=== PATIENT | female | born 2000 | race African-American/Black ===

== ENCOUNTER 2022-10-28 00:18 | Emergency (ER) | payer SELFPAY ==
[~2022-10-28] VITALS: Ht 160 cm; Wt 90.9 kg
[2022-10-28] MEDS ORDERED: buprenorphine/naloxone 8MG-2MG SUBlingual film SL ONE (00:25)
[2022-10-28] MEDS ORDERED: normal saline 1000ml 1,000 ML IV ONE (00:30)
[2022-10-28 00:50] LABS: BASOPHILS % (AUTO) 0.4 % (0-1); EOSINOPHILS # (AUTO) 0.2 X10'3 (0-0.9); EOSINOPHILS % (AUTO) 2.2 % (0-6); HEMATOCRIT 41.5 % (35.0-45.0); HEMOGLOBIN 14.2 g/dl (12.0-16.0); LYMPHOCYTES # (AUTO) 2.3 X10'3 (1.1-4.8); LYMPHOCYTES % (AUTO) 27.8 % (21-51); MEAN CORPUSCULAR HEMOGLOBIN 31.2 PG (27.0-31.0); MEAN CORPUSCULAR HGB CONC 34.1 g/dL (33.0-36.5); MEAN CORPUSCULAR VOLUME 91.6 FL (78-98); MEAN PLATELET VOLUME 9.7 FL (7.4-10.4); MONOCYTES # (AUTO) 0.5 X10'3 (0-0.9); MONOCYTES % (AUTO) 5.6 % (2-12); NEUTROPHILS # (AUTO) 5.4 X10'3 (1.8-7.7); PLATELET COUNT 255 X10'3 (140-440); RED BLOOD COUNT 4.53 X10'6 (4.20-5.60); RED CELL DISTRIBUTION WIDTH 12.8 % (11.5-14.5); WHITE BLOOD COUNT 8.4 X10'3 (4.5-11.0)
[2022-10-28 00:58] LABS: ALANINE AMINOTRANSFERASE 20 U/L (12-78); ALBUMIN 4.2 G/DL (3.4-5.0); ALBUMIN/GLOBULIN RATIO 1.2 (1.1-1.5); ALKALINE PHOSPHATASE 56 IU/L (46-116); ANION GAP 10 (8-16); ASPARTATE AMINO TRANSFERASE 20 U/L (10-37); BILIRUBIN,TOTAL 0.3 MG/DL (0.1-1.0); BLOOD UREA NITROGEN 14 MG/DL (7-18); BUN/CREATININE RATIO 13.6 (10.0-20.0); CALCIUM 9.4 MG/DL (8.5-10.1); CHLORIDE 106 MMOL/L (99-107); CREATININE 1.03 MG/DL (0.40-0.90); GLUCOSE 97 MG/DL (70-104); POTASSIUM 3.4 MMOL/L (3.5-5.1); SODIUM 142 MMOL/L (135-145); TOTAL CARBON DIOXIDE 25.6 MMOL/L (24-32); TOTAL PROTEIN 7.6 G/DL (6.4-8.2); eGFR 66 ML/MIN
[2022-10-28 01:05] LABS: ETHANOL < 0.010 GM/DL (0.0-0.010)
[2022-10-28 01:16] LABS: ACETAMINOPHEN < 2.0 UG/ML (10-30)
[2022-10-28] MEDS ORDERED: POTASSIUM BICARB 20meq eff tab 20 MEQ TABLET.EFF PO ONE (01:20)
[2022-10-28 02:02] LABS: URINE HCG NEGATIVE (NEG)
[2022-10-28 02:04] LABS: CLARITY,URINE SLIGHTLY CLOUDY (Clear); COLOR,URINE YELLOW (Yellow); GLUCOSE, URINE NEGATIVE (Neg); KETONES,URINE NEGATIVE (Neg); LEUKOCYTE ESTERASE ,URINE NEGATIVE (Neg); NITRITES, URINE NEGATIVE (Neg); OCCULT BLOOD,URINE SMALL (Neg); PROTEIN,URINE NEGATIVE (Neg); UROBILINOGEN,URINE 0.2 E.U/dL (0.2-1.0)
[2022-10-28 02:10] LABS: UA COLLECTION TYPE CLN CATCH MIDSTREAM
[2022-10-28 02:11] LABS: BACTERIA,URINE 1+ /HPF (Neg); MUCUS STRANDS MANY /LPF (Neg); RBC,URINE 20-50 /HPF (0-2); SQUAMOUS EPITHELIAL CELL,UR MANY /LPF (FEW); WBC,URINE 0-4 /HPF (0-4)
[2022-10-28 02:12] LABS: TRICHOMONAS,URINE FEW /HPF (NEGATIVE)
--- NOTE | 2022-10-28 02:17 | NUR ---
Report from ROSALIO Moser. Patient "Lucas",states overdosed on meds and Everclear. Patient ETOH is negative. Possibly did not OD on meds either. Awaiting the I.V. fluid to finish and the rest of the Urine Tox to come back for medical clearance. Advised RN to move patient to bed 25 when patient is ready.
[2022-10-28 02:18] LABS: URINE AMPHETAMINE SCREEN NEGATIVE (Neg); URINE BARBITUATE SCREEN NEGATIVE (Neg); URINE BENZODIAZEPINES SCREEN NEGATIVE (Neg); URINE CANNABINOID SCREEN POSITIVE (Neg); URINE COCAINE SCREEN POSITIVE (Neg); URINE METHADONE SCREEN NEGATIVE (Neg); URINE OPIATE SCREEN POSITIVE (Neg); URINE PHENCYCLIDINE SCREEN NEGATIVE (Neg)
--- NOTE | 2022-10-28 02:21 | NUR ---
Patient is positive for Opiates, Cocaine and THC.
--- NOTE | 2022-10-28 03:30 | NUR ---
Faxed Packet to [facility]
--- NOTE | 2022-10-28 03:50 | NUR ---
Patient brought to bed 25 in w/c. Patient laid down and fell asleep. No distress observed. Continue to monitor.
--- NOTE | 2022-10-28 05:47 | NUR ---
Patient sleeping supine. No distress observed. Continue to monitor.
[2022-10-28 05:51] VITALS: BP 104/58
--- NOTE | 2022-10-28 06:30 | NUR ---
Pt is lying in bed on his left side, appears to be sleeping.
--- NOTE | 2022-10-28 08:30 | NUR ---
Pt still appears to be sleeping.
--- NOTE | 2022-10-28 08:51 | NUR ---
Pt is awake and eating breakfast.
--- NOTE | 2022-10-28 09:02 | NUR ---
Pt currently denies SI/HI. Pt reports he takes Zoloft and clonidine. Pt requested to call his "auntie."
--- NOTE | 2022-10-28 09:11 | NUR ---
[facility] is at bedside assessing the patient.
[2022-10-28] MEDS ORDERED: CLON0.1T2 PO (09:14)
[2022-10-28] MEDS ORDERED: SERT100T PO (09:14)
--- NOTE | 2022-10-28 09:24 | NUR ---
Per [facility], pt is being placed on a 5150.
--- NOTE | 2022-10-28 09:50 | NUR ---
Pt anxious, demanding, tearful, wants her cell phone so she can get numbers out to call "her people." Pt dramatic. Attempting to locate phone to get numbers out.
--- NOTE | 2022-10-28 09:53 | NUR ---
Pt's mikhaile called to speak with "her." Pt wished to speak with her.
--- NOTE | 2022-10-28 10:10 | NUR ---
Tech located pt's phone. Pt is writing down phone numbers.
--- NOTE | 2022-10-28 10:11 | NUR ---
Med rec completed and taken to MD to sign. Obtained orders for a 14 mg nicotine patch and PRN Ativan 1 mg PO Q6H for anxiety. Faxed to pharmacy.
[2022-10-28] MEDS ORDERED: LORazepam 1 MG tablet PO PRN (10:20)
[2022-10-28] MEDS ORDERED: nicotine 14mg patch - 24hr TD SCH (10:30)
[2022-10-28] MEDS ORDERED: sertraline 50mg tablet PO SCH (10:30)
--- NOTE | 2022-10-28 10:30 | NUR ---
Pt given Ativan 1 mg PO at 1027 for anxiety. Pt provided with hygiene supplies, ice water, and orange juice.
--- NOTE | 2022-10-28 10:39 | NUR ---
Matthew naqvi in ED - 10/28/22 at 1040 by [email or web address] pt requested their family member's phone number be placed in the chart, Aunt Amada's number , Aunt Rony
--- NOTE | 2022-10-28 10:40 | NUR ---
Pt is now calm, pleasant, cooperative. Provided with coloring materials.
--- NOTE | 2022-10-28 10:40 | NUR ---
pt requested their family member's phone number be placed in the chart, Aunt Amada's number, , Aunt Minnie's number, , Brother Ranjana's number .
--- NOTE | 2022-10-28 11:20 | NUR ---
Pt's aunt is at bedside visiting.
--- NOTE | 2022-10-28 12:14 | NUR ---
Radha from [facility] called for a nurse to nurse. Requested that negative Covid test results be faxed to [phone]. Faxed result.
--- NOTE | 2022-10-28 12:27 | NUR ---
Pt has been accepted at [facility].
--- NOTE | 2022-10-28 12:41 | NUR ---
Pt has been accepted at [facility]. Transport to worm picker at 1600.
--- NOTE | 2022-10-28 13:52 | NUR ---
Repeat EKG done and read.
--- NOTE | 2022-10-28 16:09 | NUR ---
[facility] here to transport pt.
--- NOTE | 2022-10-28 16:14 | NUR ---
Pt ambulated off the unit accompanied by [facility] trencher driver and security to be transported to [facility].
[2022-10-28] MEDS ORDERED: cloNIDine 0.1 mg tablet PO SCH (21:00)
== END 2022-10-28 16:14 | disposition home or self-care (01) ==
LOC: ER 00:20
DX: R45.851 Suicidal ideations (principal); Z20.822 Contact with and (suspected) exposure to COVID-19; T40.2X2A Poisoning by other opioids, intentional self-harm, initial encounter
CPT/HCPCS: 36415; 80053; 80305; 80320; 80329; 81001; 81025; 84443; 85025; 87811; 93005; 96360; 99285; C2617; J7030

== ENCOUNTER 2023-01-17 14:19 | Emergency (ER) | payer MEDICAID ==
[~2023-01-17] VITALS: Ht 180.3 cm; Wt 100.0 kg
[~2023-01-17 14:19] MED LIST: CLON0.1T2 PO; SERT100T PO
[2023-01-17 14:35] VITALS: BP 141/78
[2023-01-17] MEDS ORDERED: AMOX875T2 PO (15:23)
== END 2023-01-17 15:32 | disposition home or self-care (01) ==
LOC: ER 14:20
DX: H66.91 Otitis media, unspecified, right ear (principal); J06.9 Acute upper respiratory infection, unspecified; Z79.1 Long term (current) use of non-steroidal anti-inflammatories (NSAID); Z79.899 Other long term (current) drug therapy
CPT/HCPCS: 99283

== ENCOUNTER 2023-06-15 21:14 | Emergency (ER) | payer MEDICAID ==
[~2023-06-15] VITALS: Ht 157.5 cm; Wt 88.7 kg
[~2023-06-15 21:14] MED LIST changes: +AMOX875T2 PO
[2023-06-15 22:04] LABS: BASOPHILS # (AUTO) 0.1 X10'3 (0-0.2); BASOPHILS % (AUTO) 0.4 % (0-1); EOSINOPHILS # (AUTO) 0.1 X10'3 (0-0.9); EOSINOPHILS % (AUTO) 0.8 % (0-6); HEMATOCRIT 44.2 % (35.0-45.0); LYMPHOCYTES # (AUTO) 0.5 X10'3 (1.1-4.8); LYMPHOCYTES % (AUTO) 3.4 % (21-51); MEAN CORPUSCULAR HEMOGLOBIN 30.5 PG (27.0-31.0); MEAN CORPUSCULAR VOLUME 89.7 FL (78-98); MEAN PLATELET VOLUME 9.2 FL (7.4-10.4); MONOCYTES # (AUTO) 0.4 X10'3 (0-0.9); MONOCYTES % (AUTO) 3.2 % (2-12); NEUTROPHILS # (AUTO) 12.7 X10'3 (1.8-7.7); NEUTROPHILS % (AUTO) 92.2 % (42-75); PLATELET COUNT 274 X10'3 (140-440); RED BLOOD COUNT 4.93 X10'6 (4.20-5.60); RED CELL DISTRIBUTION WIDTH 12.9 % (11.5-14.5); WHITE BLOOD COUNT 13.8 X10'3 (4.5-11.0)
[2023-06-15 22:16] LABS: ALANINE AMINOTRANSFERASE 20 U/L (12-78); ALBUMIN 4.1 G/DL (3.4-5.0); ALBUMIN/GLOBULIN RATIO 1.1 (1.1-1.5); ALKALINE PHOSPHATASE 68 IU/L (46-116); ANION GAP 9 (8-16); ASPARTATE AMINO TRANSFERASE 18 U/L (10-37); BILIRUBIN,TOTAL 0.9 MG/DL (0.1-1.0); BLOOD UREA NITROGEN 16 MG/DL (7-18); BUN/CREATININE RATIO 15.1 (10.0-20.0); CALCIUM 9.1 MG/DL (8.5-10.1); CHLORIDE 101 MMOL/L (99-107); CREATININE 1.06 MG/DL (0.40-0.90); GLUCOSE 110 MG/DL (70-104); LIPASE 24 U/L (16-77); POTASSIUM 3.6 MMOL/L (3.5-5.1); SODIUM 136 MMOL/L (135-145); TOTAL CARBON DIOXIDE 26.4 MMOL/L (24-32); TOTAL PROTEIN 7.8 G/DL (6.4-8.2); eCRCL 65 ML/MIN; eGFR 78 ML/MIN
[2023-06-15] MEDS ORDERED: normal saline 1000ML IV soln IVB ONE (23:00)
[2023-06-15] MEDS ORDERED: ondansetron/PF 4mg/2ml inj IV ONE (23:15)
[2023-06-15] MEDS ORDERED: acetaminophen 325mg tablet PO ONE (23:55)
[2023-06-16 00:02] LABS: BILIRUBIN,URINE SMALL (Neg); CLARITY,URINE SLIGHTLY CLOUDY (Clear); GLUCOSE, URINE NEGATIVE (Neg); KETONES,URINE TRACE mg/dl (Neg); LEUKOCYTE ESTERASE ,URINE NEGATIVE (Neg); NITRITES, URINE NEGATIVE (Neg); OCCULT BLOOD,URINE NEGATIVE (Neg); PROTEIN,URINE TRACE mg/dl (Neg); URINE HCG NEGATIVE (NEG); UROBILINOGEN,URINE 0.2 E.U/dL (0.2-1.0)
[2023-06-16 00:10] LABS: COLOR,URINE DARK YELLOW (Yellow); UA COLLECTION TYPE CLN CATCH MIDSTREAM
[2023-06-16 00:12] LABS: MUCUS STRANDS MANY /LPF (Neg); SQUAMOUS EPITHELIAL CELL,UR MANY /LPF (FEW)
[2023-06-16 00:13] LABS: RBC,URINE 0-2 /HPF (0-2); WBC,URINE 0-4 /HPF (0-4)
[2023-06-16 00:16] LABS: BACTERIA,URINE 2+ /HPF (Neg)
[2023-06-16] MEDS ORDERED: ketorolac trometh. 30mg/ml inj. IV ONE (00:20)
[2023-06-16] MEDS ORDERED: ondansetron/PF 4mg/2ml inj IV ONE (00:20)
[2023-06-16] MEDS ORDERED: ketorolac trometh. 30mg/ml inj. ONE (00:31)
[2023-06-16] MEDS ORDERED: ondansetron/PF 4mg/2ml inj ONE (00:32)
[2023-06-16] MEDS ORDERED: ONDA4TAB12 PO (01:06)
[2023-06-16 01:40] VITALS: BP 127/86; PULSE 90; RESP 17; TEMP 99.9; O2SAT 100
== END 2023-06-16 01:52 | disposition home or self-care (01) ==
LOC: ER 21:15
DX: R11.2 Nausea with vomiting, unspecified (principal); R19.7 Diarrhea, unspecified
CPT/HCPCS: 36415; 80053; 81001; 81025; 83690; 85025; 96361; 96374; 96375; 96376; 99284; J1885; J2405; J7030; 81003

== ENCOUNTER 2024-01-19 14:20 | Emergency (ER) | payer MEDICAID ==
[~2024-01-19] VITALS: Ht 157.5 cm; Wt 90.0 kg
[~2024-01-19 14:20] MED LIST changes: +ONDA4TAB12 PO
[2024-01-19 15:07] LABS: BASOPHILS % (AUTO) 0.2 % (0-1); EOSINOPHILS % (AUTO) 0.3 % (0-6); HEMOGLOBIN 15.7 g/dl (12.0-16.0); LYMPHOCYTES % (AUTO) 6.4 % (21-51); MEAN CORPUSCULAR HEMOGLOBIN 31.2 PG (27.0-31.0); MEAN CORPUSCULAR HGB CONC 33.3 g/dL (33.0-36.5); MEAN CORPUSCULAR VOLUME 93.5 FL (78-98); MEAN PLATELET VOLUME 9.7 FL (7.4-10.4); MONOCYTES # (AUTO) 1.1 X10'3 (0-0.9); MONOCYTES % (AUTO) 6.5 % (2-12); NEUTROPHILS # (AUTO) 13.9 X10'3 (1.8-7.7); NEUTROPHILS % (AUTO) 86.6 % (42-75); PLATELET COUNT 182 X10'3 (140-440); RED BLOOD COUNT 5.03 X10'6 (4.20-5.60); RED CELL DISTRIBUTION WIDTH 13.5 % (11.5-14.5); WHITE BLOOD COUNT 16.1 X10'3 (4.5-11.0)
[2024-01-19 15:19] LABS: ALBUMIN 3.7 G/DL (3.4-5.0); ANION GAP 10 (8-16); BLOOD UREA NITROGEN 12 MG/DL (7-18); BUN/CREATININE RATIO 10.4 (10.0-20.0); CALCIUM 9.3 MG/DL (8.5-10.1); CHLORIDE 102 MMOL/L (99-107); CREATININE 1.15 MG/DL (0.40-0.90); GLUCOSE 93 MG/DL (70-104); POTASSIUM 3.7 MMOL/L (3.5-5.1); SODIUM 139 MMOL/L (135-145); TOTAL CARBON DIOXIDE 27.4 MMOL/L (24-32); eCRCL 60 ML/MIN; eGFR 70 ML/MIN
[2024-01-19] MEDS ORDERED: ACET160S PO (17:05)
[2024-01-19] MEDS ORDERED: AMO250L PO (17:05)
[2024-01-19 17:10] VITALS: BP 108/62; PULSE 122; RESP 19; TEMP 101.2; O2SAT 97
[2024-01-19 17:23] LABS: BILIRUBIN,URINE NEGATIVE (Neg); CLARITY,URINE CLEAR (Clear); COLOR,URINE YELLOW (Yellow); GLUCOSE, URINE NEGATIVE (Neg); KETONES,URINE NEGATIVE (Neg); LEUKOCYTE ESTERASE ,URINE NEGATIVE (Neg); NITRITES, URINE NEGATIVE (Neg); OCCULT BLOOD,URINE NEGATIVE (Neg); PH,URINE 6.5 (4.8-8.0); PROTEIN,URINE NEGATIVE (Neg); UROBILINOGEN,URINE 0.2 E.U/dL (0.2-1.0)
[2024-01-19] MEDS: amoxicillin 250MG/5ML oral suspension 80ML PO STA (17:34)
[2024-01-19 17:43] LABS: UA COLLECTION TYPE CLN CATCH MIDSTREAM
== END 2024-01-19 17:41 | disposition home or self-care (01) ==
LOC: ER 14:21
DX: K02.9 Dental caries, unspecified (principal); J02.8 Acute pharyngitis due to other specified organisms; B95.3 Streptococcus pneumoniae as the cause of diseases classified elsewhere; Z79.2 Long term (current) use of antibiotics; Z79.899 Other long term (current) drug therapy
CPT/HCPCS: 36415; 80048; 81003; 83605; 84145; 85025; 87040; 99283

== ENCOUNTER 2024-07-02 21:27 | Emergency (ER) | payer MEDICAID, OTHER ==
[~2024-07-02] VITALS: Ht 160 cm; Wt 98.6 kg
[~2024-07-02 21:27] MED LIST changes: +ONDA-243 PO; -ONDA4TAB12 PO
[2024-07-02] MEDS ORDERED: IBUP-1984 PO (22:58)
[2024-07-02] MEDS ORDERED: BACL10TA2 PO (22:58)
[2024-07-02] MEDS: LIDOcaine 5% patch TP STA (22:58)
[2024-07-02] MEDS ORDERED: LIDO700A32 TD (22:58)
[2024-07-02] MEDS: ketorolac trometh 15mg/ml vial 15 MG/ML ML IM ONE (22:59)
[2024-07-02 23:15] VITALS: BP 120/65; PULSE 65; RESP 16; TEMP 98.6; O2SAT 99
== END 2024-07-02 23:17 | disposition home or self-care (01) ==
LOC: ER 21:28
DX: M54.2 Cervicalgia (principal); Z79.2 Long term (current) use of antibiotics; V49.40XA Driver injured in collision with unspecified motor vehicles in traffic accident, initial encounter; Y93.89 Activity, other specified; Y92.410 Unspecified street and highway as the place of occurrence of the external cause; Y99.8 Other external cause status
CPT/HCPCS: 96372; 99283; J1885